=== PATIENT | female | born 1990 | race Asian ===

== ENCOUNTER → 2025-01-05 15:26 | Outpatient (REF) | payer BC, SELFPAY ==
--- NOTE | 2025-01-05 14:53 | PN.DIAED06 ---
Meal Plan - Gestational
- Breakfast
Gestational Diabetes Meal Plan Name: 1800 calories
Breakfast - Total Carbohydrate (grams): 30 (1 carb choice = 15 grams)
Breakfast - Starch Carbohydrate: 1 (carbs: starch, fruit, juice, milk)
Breakfast - Fruit Carbohydrate: 0 (no fruit or juice before noon)
Breakfast - Milk Carbohydrate: 1
Breakfast - Nonstarchy Vegetables: Yes
Breakfast - Meat/Protein: 1 (1 serving protein = 7 g.)
Breakfast - Fat: 2 (1 serving fat = 5 g.)
- Morning Snack
Morning Snack - Total Carbohydrate (grams): 30
Morning Snack - Starch Carbohydrate: 1
Morning Snack - Fruit Carbohydrate: 0 (no fruit or juice before noon)
Morning Snack - Milk Carbohydrate: 1
Morning Snack - Nonstarchy Vegetables: Yes
Morning Snack - Meat/Protein: 0.5
Morning Snack - Fat: 0
- Lunch
Lunch - Total Carbohydrate (grams): 45
Lunch - Starch Carbohydrate: 2
Lunch - Fruit Carbohydrate: 1
Lunch - Milk Carbohydrate: 0
Lunch - Nonstarchy Vegetables: Yes
Lunch - Meat/Protein: 2
Lunch - Fat: 1
- Afternoon Snack
Afternoon Snack - Total Carbohydrate (grams): 30
Afternoon Snack - Starch Carbohydrate: 1
Afternoon Snack - Fruit Carbohydrate: 1
Afternoon Snack - Milk Carbohydrate: 0
Afternoon Snack - Nonstarchy Vegetables: Yes
Afternoon Snack - Meat/Protein: 1
Afternoon Snack - Fat: 0
- Dinner
Dinner - Total Carbohydrate (grams): 45
Dinner - Starch Carbohydrate: 2
Dinner - Fruit Carbohydrate: 0
Dinner - Milk Carbohydrate: 1
Dinner - Nonstarchy Vegetables: Yes
Dinner - Meat/Protein: 2
Dinner - Fat: 2
- Evening Snack
Evening Snack - Total Carbohydrate (grams): 30 (choose snack with complex carb, protein, & fat)
Evening Snack - Starch Carbohydrate: 1
Evening Snack - Fruit Carbohydrate: 0
Evening Snack - Milk Carbohydrate: 1
Evening Snack - Nonstarchy Vegetables: Yes
Evening Snack - Meat/Protein: 1
Evening Snack - Fat: 1
--- NOTE | 2025-01-06 10:48 | PN.DE ---
Diabetes Education
- -
01/05/2025 GESTATIONAL DIABETES CONSULT
Met with Verito today for medical nutrition therapy. G2, P1 with an LALIT of 03/22/2025.
Explained glucose metabolism in body and what occurs during to cause increase blood sugar. Discussed importance of keeping BS well controlled to avoid complications to the baby during and after (macrosomia, hypoglycemia). Discussed
macronutrients, provided with 2000 roxana GDM meal plan.
Discussed physical activity, she occasionally walks 20 minutes at 9:30 at night to help control fasting glucose levels.
She presented to the appointment with a [employer] glucose monitor and supplies. She is aware to test FBS and 2 hr pp each meal. Expected results for FBS <95 mg/dl and 2 hr pp <120 mg/dl. Her glucose has been 91-101 fasting and 106-103 post prandial.
She has not been checking glucose after every meal.
Log sheet provided for her to record results, she will send a 4-day meal log with all her FBG and 2hr Post prandial glucose numbers to this office for review. In addition, she will send all her glucose readings [facility] every Friday.
She was encouraged to reach out should she require insulin.
== END ==
LOC: DES 15:26
PROVIDERS: ATTENDING PHYSICIAN Obstetrics & Gynecology
DX: O24.419 Gestational diabetes mellitus in pregnancy, unspecified control (principal)
CPT/HCPCS: 99078

== ENCOUNTER → 2025-01-11 16:39 | Outpatient (REF) | payer BC, SELFPAY | LOC: PNTC 16:39 | PROVIDERS: ATTENDING PHYSICIAN Obstetrics & Gynecology | DX: O24.419 Gestational diabetes mellitus in pregnancy, unspecified control (principal) | CPT/HCPCS: 76815 ==

== ENCOUNTER → 2025-01-25 15:59 | Outpatient (REF) | payer BC, SELFPAY | LOC: DES 15:59 | PROVIDERS: ATTENDING PHYSICIAN Obstetrics & Gynecology | DX: O24.419 Gestational diabetes mellitus in pregnancy, unspecified control (principal) | CPT/HCPCS: 99078 ==

== ENCOUNTER → 2025-01-27 13:24 | Outpatient (REF) | payer BC, SELFPAY | LOC: PNTC 13:24 | PROVIDERS: ATTENDING PHYSICIAN Student in an Organized Health Care Education/Training Program | DX: O24.419 Gestational diabetes mellitus in pregnancy, unspecified control (principal) | CPT/HCPCS: 59025; 76816 ==

== ENCOUNTER → 2025-02-03 14:53 | Outpatient (REF) | payer BC, SELFPAY | LOC: PNTC 14:53 | PROVIDERS: ATTENDING PHYSICIAN Obstetrics & Gynecology | DX: O24.419 Gestational diabetes mellitus in pregnancy, unspecified control (principal) | CPT/HCPCS: 59025; 76815 ==

== ENCOUNTER → 2025-02-10 16:55 | Outpatient (REF) | payer BC, SELFPAY | LOC: PNTC 16:55 | PROVIDERS: ATTENDING PHYSICIAN Obstetrics & Gynecology | DX: O24.419 Gestational diabetes mellitus in pregnancy, unspecified control (principal) | CPT/HCPCS: 59025; 76815 ==

== ENCOUNTER → 2025-02-17 15:29 | Outpatient (REF) | payer BC, SELFPAY | LOC: PNTC 15:29 | PROVIDERS: ATTENDING PHYSICIAN Obstetrics & Gynecology | DX: O24.419 Gestational diabetes mellitus in pregnancy, unspecified control (principal) | CPT/HCPCS: 76815 ==

== ENCOUNTER → 2025-02-24 08:28 | Outpatient (REF) | payer BC, SELFPAY | LOC: PNTC 08:28 | PROVIDERS: ATTENDING PHYSICIAN Obstetrics & Gynecology | DX: O24.414 Gestational diabetes mellitus in pregnancy, insulin controlled (principal); O09.523 Supervision of elderly multigravida, third trimester | CPT/HCPCS: 59025; 76816 ==

== ENCOUNTER → 2025-03-03 08:38 | Outpatient (REF) | payer BC, SELFPAY | LOC: PNTC 08:38 | PROVIDERS: ATTENDING PHYSICIAN Obstetrics & Gynecology | DX: O24.414 Gestational diabetes mellitus in pregnancy, insulin controlled (principal); O09.523 Supervision of elderly multigravida, third trimester | CPT/HCPCS: 59025; 76815 ==

== ENCOUNTER → 2025-03-10 15:00 | Outpatient (REF) | payer BC, SELFPAY | LOC: PNTC 15:00 | PROVIDERS: ATTENDING PHYSICIAN Obstetrics & Gynecology | DX: O09.529 Supervision of elderly multigravida, unspecified trimester (principal); O24.419 Gestational diabetes mellitus in pregnancy, unspecified control | CPT/HCPCS: 59025; 76815 ==

== ENCOUNTER 2025-03-15 19:25 | Inpatient (IN) | payer BC, SELFPAY ==
[2025-03-15 19:33] VITALS: BP 98/62; BMI 33.4
[2025-03-15 19:49] LABS: Hematocrit 34.7 % (37.0-47.0); Hemoglobin 11.0 g/dL (12.0-16.0); Mean Corp Hgb Conc. 31.7 g/dL (33.0-37.0); Mean Corpuscular Volume 62.2 fL (81.0-99.0); Nucleated Red Blood Cells % 0 %; Platelet Count 280 10^3/uL (130-400); Red Cell Dist. Width 17.2 % (11.5-14.5)
[2025-03-15 20:06] LABS: ALT (SGPT) 22 U/L (0-35); AST (SGOT) 21 U/L (14-36); Albumin 4.0 g/dl (3.5-5.0); Alkaline Phosphatase 104 U/L (38-126); Blood Urea Nitrogen 13 mg/dl (7-17); Calcium 8.8 mg/dl (8.4-10.2); Carbon Dioxide 17 mmol/L (22-30); Chloride 109 mmol/L (98-107); Estimated Creatinine Clearance > 125 ml/min; Glucose 95 mg/dl (70-99); Potassium 4.4 mmol/L (3.5-5.1); Sodium 133 mmol/L (135-145); Total Protein 7.2 g/dl (6.3-8.2); eGFR > 60.00
[2025-03-15] MEDS: CYTOTEC 25 MICROGRAM VAG (20:45)
[2025-03-15] MEDS: HUMULIN N KWIKPEN 6 UNITS SC (22:27)
[2025-03-16] MEDS: LR 1000 IV ×2 (01:42→04:24)
[2025-03-16 02:50] LABS: Glucose - Point of Care 86 mg/dl (70-99)
[2025-03-16] MEDS: SUBLIMAZE 100 MCG EPIDURAL (03:53)
[2025-03-16] MEDS: FENTANYL/BUPIVACAINE 100 EPIDURAL (03:53)
[2025-03-16 04:52] LABS: Glucose - Point of Care 101 mg/dl (70-99)
[2025-03-16 07:48] LABS: Glucose - Point of Care 84 mg/dl (70-99)
[2025-03-16] MEDS: PITOCIN 30 UNITS/NSS 500 ML IV (08:54)
[2025-03-16] MEDS: MOTRIN 600 MG PO ×2 (11:30→20:11)
[2025-03-16] MEDS: PRENATAL PLUS 1 TABLET PO (11:30)
[2025-03-16] MEDS: COLACE 100 MG PO (20:01)
[2025-03-16] MEDS: TYLENOL 650 MG PO (20:11)
[2025-03-17] MEDS: MOTRIN 600 MG PO ×3 (04:41→23:03)
[2025-03-17 05:06] LABS: Hematocrit 30.4 % (37.0-47.0); Hemoglobin 9.8 g/dL (12.0-16.0)
[2025-03-17] MEDS: FEOSOL 325 MG PO (09:44)
[2025-03-17] MEDS: PRENATAL PLUS 1 TABLET PO (09:44)
[2025-03-17] MEDS: COLACE 100 MG PO ×2 (09:47→20:06)
[2025-03-17] MEDS: TYLENOL 650 MG PO (23:03)
[2025-03-18] MEDS: PRENATAL PLUS 1 TABLET PO (08:27)
[2025-03-18] MEDS: COLACE 100 MG PO (08:27)
[2025-03-18] MEDS: FEOSOL 325 MG PO (08:27)
[2025-03-18] MEDS: MOTRIN 600 MG PO (08:33)
[2025-03-18 13:02] LABS: Syphilis/T. pallidum Ab Reflex Negative (Negative)
== END 2025-03-18 12:10 | disposition home or self-care (01) | DRG 807 ==
LOC: LDRP 19:25
PROVIDERS: Obstetrics & Gynecology; ADMITTING PHYSICIAN Obstetrics & Gynecology
PROC: 3E0P7VZ Introduction of Hormone into Female Reproductive, Via Natural or Artificial Opening (ICD-10-PCS; 2025-03-15)
PROC: 0KQM0ZZ Repair Perineum Muscle, Open Approach (ICD-10-PCS; 2025-03-16)
PROC: 10E0XZZ Delivery of Products of Conception, External Approach (ICD-10-PCS; 2025-03-16)
DX: O24.424 Gestational diabetes mellitus in childbirth, insulin controlled (principal); Z37.0 Single live birth; Z3A.39 39 weeks gestation of pregnancy; O70.1 Second degree perineal laceration during delivery; O99.02 Anemia complicating childbirth; D64.9 Anemia, unspecified; O69.3XX0 Labor and delivery complicated by short cord, not applicable or unspecified
CPT/HCPCS: 36415; 59025; 80053; 82962; 85014; 85018; 85025; 86780; 86850; 86900; 86901